=== PATIENT | male | born 1945 | race Caucasian/White ===

== ENCOUNTER 2022-01-14 20:01 | Emergency (ER) | payer SELFPAY ==
[2022-01-14 20:22] VITALS: BP 108/68; PULSE 72; TEMP 98.8; BMI 28.3
[2022-01-16 17:06] LABS: SARS-CoV-2 NAA Not Detected (Not Detected)
== END 2022-01-14 22:23 | disposition home or self-care (01) ==
LOC: FER 20:01
DX: R05.1 Acute cough (principal); J02.9 Acute pharyngitis, unspecified; J34.89 Other specified disorders of nose and nasal sinuses
CPT/HCPCS: 71046-TC-FY; 99284-25; C9803-CS; U0003; U0005